=== PATIENT | male | born 1980 | race Caucasian/White ===

== ENCOUNTER 2020-06-18 09:47 | Emergency (ER) | payer OTHER ==
[~2020-06-18] VITALS: Ht 175.3 cm; Wt 130.2 kg
[2020-06-18 11:04] LABS: BASOPHILS 0.6 % (0.0-2.0); EOSINOPHILS 2.4 % (0.0-3.0); HEMATOCRIT 44.5 % (42.0-52.0); HEMOGLOBIN 15.7 gm/dL (14.0-18.0); LYMPHOCYTES 17.6 % (24.0-44.0); MCH 33.9 pg (26.0-34.0); MCHC 35.2 g/dL (28.0-37.0); MCV 96.2 fL (80.0-100.0); MONOCYTES 6.3 % (1.0-8.0); POLYS 73.1 % (36.0-66.0); RBC 4.63 mil/uL (4.50-6.00); RDW 13.8 % (10.5-14.5); WBC 6.8 thou/uL (4.0-11.0)
[2020-06-18 11:13] LABS: CALCIUM 8.2 mg/dL (8.5-10.1); CREATININE 0.8 mg/dL (0.7-1.3); POTASSIUM 3.6 mmol/L (3.5-5.1)
[2020-06-18 11:19] LABS: ALBUMIN 3.3 g/dL (3.4-5.0); TOTAL BILIRUBIN 0.9 mg/dL (0.2-1.0); TOTAL PROTEIN 8.3 g/dL (6.4-8.2)
[2020-06-18 12:10] LABS: PLATELET COUNT 89 thou/uL (150-400); PLATELET ESTIMATE SLIGHTLY DECREASED
[2020-06-18] MEDS ORDERED: ZANAFLEX4 M1 PO (13:22)
[2020-06-18 13:24] VITALS: BP 127/72
--- NOTE | 2020-06-18 16:28 | EKG ---
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: [facility] : 1980 Requested By: Alex Miranda Order Number: [id number] MD: Sadi Jordan Measurements Intervals [place] Rate: 93 P: 10 MO: 144 QRS: 3 QRSD: 94 T: 28 QT: 360 QTc: 448 Interpretive Statements Sinus rhythm Abnormal R-wave progression, early transition Baseline wander in lead(s) III,V1 No previous ECG available for comparison Electronically Signed On 06-18-2020 16:28:25 CDT by Sadi Jordan [email or web address] <ELECTRONICALLY SIGNED> By: Sadi Jordan MD, [facility] 06/18/20 [id number] [id number] Sadi Jordan MD, [facility] /EPI
== END 2020-06-18 13:25 | disposition home or self-care (01) ==
LOC: ER 09:47
PROVIDERS: Nurse Practitioner
DX: M79.10 Myalgia, unspecified site (principal); F17.210 Nicotine dependence, cigarettes, uncomplicated